=== PATIENT | female | born 1980 | race Caucasian/White ===

== ENCOUNTER 2016-10-28 03:46 | Inpatient (IN) | payer OTHER ==
[2016-10-28 06:29] LABS: Hematocrit 34 % (35-47); Hemoglobin 11.6 g/dl (12.0-16.0); Mean Corpuscular HGB Conc 34 g/dl (31-36); Mean Corpuscular Hemoglobin 31 pg (27-31); Mean Corpuscular Volume 90 fL (80-97); Mean Platelet Volume 9 um3 (7.4-10.4); Red Blood Count 3.79 10^6/ul (4.0-5.4); Red Cell Distribution Width 13 % (10.5-15); White Blood Count 9.6 10^3/ul (3.5-10.8)
[2016-10-28 06:43] LABS: Comments Flag Yes
[2016-10-28] MEDS ORDERED: Oxytocin in LR* 20 UNITS/1,000 ML BAG IVPB ONE (08:48)
[2016-10-28] MEDS ORDERED: Oxytocin in LR* 20 UNITS/1,000 ML BAG IVPB SCH (09:00)
[2016-10-28] MEDS ORDERED: OBEPIDURAL* 250 ML ONE (14:40)
[2016-10-28] MEDS ORDERED: Famotidine TAB* 20 MG PO PRN (15:21)
[2016-10-28] MEDS ORDERED: Sodium Citrate/Citric Acid* 15 ML UDC PO PRN (15:21)
[2016-10-28] MEDS ORDERED: Phenylephrine IV* 40 MCG/ML 10 ML SYRINGE IV PUSH PRN (15:21)
[2016-10-28] MEDS ORDERED: OBEPIDURAL* 250 ML EPIDURAL SCH (16:00)
[2016-10-29] MEDS ORDERED: ceFOXitin 2 GM IVPREMIX* 2 GM/50 ML BAG ONE
[2016-10-29] MEDS ORDERED: Ketorolac INJ* 30 MG/ML 1 ML VIAL ONE (00:10)
[2016-10-29] MEDS ORDERED: Lidocaine 2% PF* 10 ML AMP ONE (00:10)
[2016-10-29] MEDS ORDERED: OXYTOCIN* 10 UNITS/ML 1 ML VIAL ONE (00:10)
[2016-10-29] MEDS ORDERED: Ondansetron INJ* 2 MG/ML VIAL ONE (00:10)
[2016-10-29] MEDS ORDERED: ceFOXitin 2 GM IVPREMIX* 2 GM/50 ML BAG IVPB ONE (00:11)
[2016-10-29] MEDS ORDERED: oxyCODONE/Acetamin 5/325 MG* TAB PO PRN ×4 (00:12→02:01)
[2016-10-29] MEDS ORDERED: Dibucaine 1% 28.35 GM TUBE PR PRN (00:12)
[2016-10-29] MEDS ORDERED: Acetaminophen TAB* 325 MG PO PRN (00:12)
[2016-10-29] MEDS ORDERED: Glycerin ADULT SUPP PR PRN (00:12)
[2016-10-29] MEDS ORDERED: Witch Hazel PAD* JAR TOPICAL PRN (00:12)
[2016-10-29] MEDS ORDERED: Morphine PF AMP (0.5MG/ML)* 5 MG/10 ML AMP ONE (00:36)
[2016-10-29] MEDS ORDERED: Phenylephrine IV* 40 MCG/ML 10 ML SYRINGE ONE (00:36)
[2016-10-29] MEDS ORDERED: Oxytocin in LR* 20 UNITS/1,000 ML BAG IVPB SCH (01:00)
[2016-10-29] MEDS ORDERED: fentaNYL* 50 MCG/ML 2 ML VIAL (100 MCG VIAL) ONE (01:09)
[2016-10-29] MEDS ORDERED: Propofol* 10 MG/ML 20 ML BTL IV PUSH ONE (01:38)
[2016-10-29] MEDS ORDERED: HYDROmorphone* 1 MG/ML 1 ML SYR IV PRN (01:53)
[2016-10-29] MEDS ORDERED: DiMENhydriNATE IV* 50 MG/ML VIAL IV PUSH PRN (01:53)
[2016-10-29] MEDS ORDERED: Acetaminophen IV 1GM/100ML * 100 ML IVPB ONE (01:53)
[2016-10-29] MEDS ORDERED: Naloxone* 0.4 MG/ML 1 ML VIAL IV PRN (01:55)
[2016-10-29] MEDS ORDERED: Ondansetron INJ* 2 MG/ML VIAL IV PRN (01:55)
[2016-10-29] MEDS ORDERED: Nalbuphine* 20 MG/ML 1 ML VIAL IV PRN (01:55)
[2016-10-29] MEDS ORDERED: oxyCODONE TAB* 5 MG TAB PO PRN (02:02)
[2016-10-29 03:15] LABS: Hematocrit 29 % (35-47); Hemoglobin 9.8 g/dl (12.0-16.0); Mean Corpuscular HGB Conc 34 g/dl (31-36); Mean Corpuscular Hemoglobin 30 pg (27-31); Mean Corpuscular Volume 89 fL (80-97); Mean Platelet Volume 8 um3 (7.4-10.4); Red Blood Count 3.23 10^6/ul (4.0-5.4); Red Cell Distribution Width 13 % (10.5-15); White Blood Count 17.8 10^3/ul (3.5-10.8)
[2016-10-29] MEDS ORDERED: Misoprostol TAB* 200 MCG ONE (03:41)
[2016-10-29 03:54] LABS: EGFR African American 150.4 (>60)
[2016-10-29] MEDS ORDERED: Gentamicin ADULT per pharmacy 1 NOTE MISC FOLLOW UP PRN (04:12)
[2016-10-29] MEDS ORDERED: Gentamicin ADULT (*) 40 MG/ML VIAL IVPB SCH (06:00)
[2016-10-29] MEDS: Clindamycin 900 MG IVPREMIX(* 900 MG/50 ML SDV IV SCH ×3 (06:02→22:20)
[2016-10-29] MEDS: Simethicone CHEW TAB* 80 MG PO SCH ×4 (08:33→20:37)
[2016-10-29] MEDS: Ibuprofen TAB* 600 MG PO PRN ×3 (08:33→20:37)
[2016-10-29] MEDS: Docusate CAP* 100 MG PO SCH ×3 (08:33→20:37)
--- NOTE | 2016-10-29 14:34 | OP ---
DATE OF OPERATION: 10/29/16 - ROOM #MCHOB-104 DATE OF : 76 SURGEON: Maryjo Westbrook MD DELI CUTTER SLICER: Mick Peralta CNM. ANESTHESIOLOGIST: Dat Kidd MD. ANESTHESIA: Epidural. PRE-OP DIAGNOSIS: Intrauterine at 40-3/7 weeks, arrest of descent. POST-OP DIAGNOSIS: Intrauterine at 40-3/7 weeks, arrest of descent, delivered. OPERATIVE PROCEDURE: Primary low transverse section. FLUIDS: 1600 cc of crystalloid. ESTIMATED BLOOD LOSS: 600 cc. URINE OUTPUT: 400 cc of concentrated, pink tinged, yellow urine. FINDINGS: Revealed a vertex male infant, direct OP. Apgars 9 at 1 minute, 9 at 5 minutes. Weight was 8 pounds 15 ounces. No meconium. No nuchal cord. Normal- appearing placenta, three-vessel cord, manually extracted. Placental culture obtained. The uterine cavity explored, noted to be free of any membranes or placental tissue. Normal-appearing tubes and ovaries bilaterally. COMPLICATIONS: None apparent. DISPOSITION: Stable to recovery room. DESCRIPTION OF PROCEDURE: The patient was placed in dorsal lithotomy position. After undergoing bolus of the epidural anesthesia, the abdomen was prepped and draped in a sterile standard fashion. The patient was identified with the universal protocol. Anesthesia was tested to appropriate level. Incision was made 2 fingerbreadths above the pubic symphysis. This was carried down to the fascia. Fascia was scored in the midline and extended laterally and superiorly using curved Dahl scissors, both superiorly and inferiorly with blunt and sharp dissection. Linea alba was then traversed bluntly and the peritoneal cavity was entered bluntly. Copious peritoneal fluid was noted. The bladder blade was inserted. The low uterine segment was identified, tented up with an Allis and incised with the scalpel. This was carried down through to the membranes. The uterine incision was extended laterally and superiorly using bandage scissors, no meconium was noted. was found to be direct OP with nose and eyes at incisional site. Infant was delivered. Anterior and posterior shoulder delivered. Cord was doubly clamped and cut and infant was handed off to waiting manipulator operator. Appropriate cord blood was obtained. Placenta was then manually extracted noted to be intact, three-vessel cord. Uterine cavity was explored, noted to be free of membranes. Uterus was exteriorized, wrapped in warm moist laparotomy sponge. The incision was clamped with broad Allis in the incision, hysterotomy site was reapproximated in 2 layers, first layer running lock, second layer running imbricated. Tubes and ovaries are noted to have normal appearance. Uterus was returned intraabdominally. Copious lavage was performed of colic gutters, removal of blood and clots. The hysterotomy site was visualized, noted to be hemostatic. The peritoneum was then clamped and the peritoneum was then reapproximated using 3- 0 Vicryl in a running fashion. The subfascial area was visualized. Hemostasis assured and the fascia itself was then reapproximated using 0 Vicryl x2 in a running fashion. Lavage was performed of the subcutaneous tissue. Hemostasis assured with Bovie coagulation and the skin was then reapproximated using a 4-0 Monocryl in a subcuticular fashion. Mastisol and Steri's were applied. Please note prior to subcuticular closure, a Camper's fascia closure was carried out with 0 Vicryl in an interrupted fashion x3. All sponge, instruments, and blade counts were correct throughout the case. The patient tolerated the procedure well and went to recovery room in stable condition. [id number]/[facility] #: [id number] KLAUS
[2016-10-29] MEDS: oxyCODONE/Acetamin 5/325 MG* TAB PO PRN ×2 (17:26→23:20)
[2016-10-29] MEDS ORDERED: Gentamicin Trough Level 1 NOTE MISC FOLLOW UP ONE (22:00)
[2016-10-29] MEDS ORDERED: Gentamicin PEAK LEVEL* 1 NOTE MISC FOLLOW UP ONE (23:00)
[2016-10-30] MEDS: Ibuprofen TAB* 600 MG PO PRN (04:12)
[2016-10-30] MEDS: Clindamycin 900 MG IVPREMIX(* 900 MG/50 ML SDV IV SCH (05:16)
[2016-10-30] MEDS: oxyCODONE/Acetamin 5/325 MG* TAB PO PRN ×3 (07:27→21:33)
[2016-10-30 07:35] LABS: Hematocrit 25 % (35-47); Hemoglobin 8.4 g/dl (12.0-16.0); Mean Corpuscular HGB Conc 34 g/dl (31-36); Mean Corpuscular Hemoglobin 30 pg (27-31); Mean Corpuscular Volume 90 fL (80-97); Mean Platelet Volume 8 um3 (7.4-10.4); Red Blood Count 2.77 10^6/ul (4.0-5.4); Red Cell Distribution Width 14 % (10.5-15); White Blood Count 12.3 10^3/ul (3.5-10.8)
[2016-10-30] MEDS: Simethicone CHEW TAB* 80 MG PO SCH ×4 (10:07→21:32)
[2016-10-30] MEDS: Docusate CAP* 100 MG PO SCH ×3 (10:07→21:32)
[2016-10-30] MEDS: Ferrous Gluconate TAB* 324 MG TAB PO SCH ×2 (10:07→21:33)
[2016-10-30] MEDS: Ibuprofen TAB* 600 MG PO SCH ×2 (10:50→18:07)
[2016-10-31] MEDS: Ibuprofen TAB* 600 MG PO SCH ×3 (00:29→13:53)
[2016-10-31] MEDS: Simethicone CHEW TAB* 80 MG PO SCH ×2 (07:47→13:51)
[2016-10-31] MEDS: Ferrous Gluconate TAB* 324 MG TAB PO SCH (07:47)
[2016-10-31] MEDS: Docusate CAP* 100 MG PO SCH ×2 (07:47→13:51)
[2016-10-31 08:01] VITALS: BP 114/65
[2016-10-31] MEDS: oxyCODONE/Acetamin 5/325 MG* TAB PO PRN (13:52)
[2016-11-05] MEDS ORDERED: Gentamicin Trough Level 1 NOTE MISC FOLLOW UP ONE (22:00)
[2016-11-05] MEDS ORDERED: Gentamicin PEAK LEVEL* 1 NOTE MISC FOLLOW UP ONE (23:00)
== END 2016-10-31 14:20 | disposition home or self-care (01) | DRG 766 ==
LOC: MCHOBOUT 03:46 → MCHOB 04:25
PROVIDERS: ADMIT Obstetrics & Gynecology; ATTEND Obstetrics & Gynecology
PROC: 10D00Z1 Extraction of Products of Conception, Low, Open Approach (ICD-10-PCS; principal; 2016-10-29 00:24)
DX: O62.0 Primary inadequate contractions (principal); D64.9 Anemia, unspecified; O32.2XX0 Maternal care for transverse and oblique lie, not applicable or unspecified; O48.0 Post-term pregnancy; O90.81 Anemia of the puerperium; Z3A.40 40 weeks gestation of pregnancy; Z37.0 Single live birth
CPT/HCPCS: 36415; 80170; 82565; 85025; 86850; 86900; 86901; 87040; 87070; 88307; A9270-GY; J0290; J0694; J1580; J1885; J2001; J2405; J2590; J2704; J3010

== ENCOUNTER 2019-02-13 10:23 | Emergency (ER) | payer OTHER ==
--- OUTSIDE RECORDS SUMMARY | 2019-02-13 11:29 | XMS REPORT | Continuity of Care Document ---
:1980 External Reference #:[id number] Author Name Shanice Carpenter M.D. Address [address] [place] [address] Care Team Providers Name Role Phone Brandy James M.D. - Family Medicine Care Team Information [employer] Unavailable Problems Active Problems Provider Date Allergic rhinitis Brandy James M.D. Onset: 04/16/2015 Social History Type Date Description Comments Sex Unknown ETOH Use Consumes 1 glass of wine per day Tobacco Use Start: Unknown Patient has never smoked Smoking Status Reviewed: 04/11/18 Patient has never smoked Exercise Type/Frequency Exercises sporadically Allergies, Adverse Reactions, Alerts Description No Known Drug Allergies Medications Description No Active Medications Immunizations CPT Code Status Date Vaccine Lot # [id number] Given 04/11/2018 Influenza Virus Vaccine, Recombinant Dna, [id number] Hemagglutnin Protein On Vital Signs Date Vital Result Comment 12/29/2018 3:54pm BP Systolic 120 mmHg BP Diastolic 56 mmHg Heart Rate 84 /min Body Temperature 98.7 F Height 64 inches 5'4" Weight 167.00 lb BMI (Body Mass Index) 28.7 kg/m2 04/11/2018 9:40am BP Systolic 100 mmHg BP Diastolic 72 mmHg Heart Rate 60 /min Body Temperature 98.2 F Respiratory Rate 12 /min Height 64 inches 5'4" Weight 146.00 lb BMI (Body Mass Index) 25.1 kg/m2 Results Description No Information Available Procedures Description No Information Available Medical Devices Description No Information Available Encounters Description No Information Available Assessments Date Code Description Provider 12/29/2018 J02.9 Acute pharyngitis, unspecified Shanice Carpenter M.D. 12/29/2018 B34.9 Viral infection, unspecified Shanice Carpenter M.D. Plan of Treatment 12/29/2018 - Shanice Carpenter M.D.J02.9 Acute pharyngitis, unspecifiedNew Labs :Quickstrep, Ordered: 12/29/18Comments:quick strep negative.B34.9 Viral infection, unspecifiedComments:ok to take tylenol for pain and fever. Hot toddy - hot black tea, lemon, honey, octavio, garlic. Warm towel around the throat.plenty of sleep. dextromethorphan cough syrup - benylin, delsym, plain robitusssin. hot salt water gargle if your throat hurts. you might need to come back for re-evaluation if you get worse. Addendum: left message on phone after she left about whether or not dextromethrophan is safe to take in . I looked up several references and got conflicting reports about its safety. Asked her to call her OB to find out if it is ok for her to take it while she is . I told her cough drops are ok I also sent her a portal m edy.AllComments:Medication Management Patient Understands medications she's taking? Yes No Are there Barriers to Adherence? Yes No Has the patient been asked about herbal supplements and therapies, and OTC meds? Yes No Functional Status Description No Information Available Mental Status Description No Information Available Referrals Description No Information Available
--- NOTE | 2019-02-13 11:43 | UC ---
Throat Pain/Nasal Armando HPI - HPI Summary HPI Summary: 38 yo female presents with sinus symptoms. She tells me that for the last 1.5 weeks she has had a mild sore throat and sinus congestion. Over the last 3 days has had worsening pain in her right maxillary sinus. She has been doing kaylyn pot and nasal rinses and OTC cold medication with no relief. She is currently 35 weeks with no issues and is scheduled for a on 03/14/18. She denies fever, chills, rash, abdominal/pelvic pain, n/v, dysuria. - History of Current Complaint Stated Complaint: SINUS ISSUE Time Seen by Provider: 02/13/19 11:43 Hx Obtained From: Patient Onset/Duration: Gradual Onset Severity: Moderate Pain Intensity: 5 Pain Scale Used: 0-10 Numeric - Allergies/Home Medications Allergies/Adverse Reactions: Allergies Allergy/AdvReac Type Severity Reaction Status Date / Time No Known Allergies Allergy Verified 02/13/19 11:51 Home Medications: Home Medications Calcium Carbonate [Calcium] 1 dose PO DAILY 02/13/19 [History Confirmed 02/13/19 ] Magnesium Oxide [Magnesium] 1 dose PO DAILY 02/13/19 [History Confirmed 02/13/19 ] Vit37/Iron/Folic Acid [Prenata Chewable Tablet] 1 tab PO DAILY [History Confirmed 02/13/19] Pseudoephedrine HCl [Sudafed] 1 tab PO ONCE PRN 02/13/19 [History Confirmed 12/23] PMH/Surg Hx/FS Hx/Imm Hx - Additional Past Medical History Additional PMH: None - Surgical History Surgical History: Yes Surgery Procedure, Year, and Place: WISDOM TEETH LOWER-LOCAL - Family History Known Family History: Positive: None - Social History Occupation: Employed Full-time Lives: With Family Alcohol Use: None Substance Use Type: None Smoking Status (MU): Never Smoked Tobacco - Immunization History Most Recent Influenza Vaccination: not currently flu season Most Recent Pneumonia Vaccination: not indicated Review of Systems All Other Systems Reviewed And Are Negative: No Constitutional: Positive: Negative Skin: Positive: Negative Eyes: Positive: Negative ENT: Positive: Nasal Discharge, Sinus Congestion, Sinus Pain/Tenderness Respiratory: Positive: Negative Cardiovascular: Positive: Negative Gastrointestinal: Positive: Negative Neurovascular: Positive: Negative Neurological: Positive: Negative Psychological: Positive: Negative Physical Exam - Summary Physical Exam Summary: GENERAL: NAD. WDWN. No pain distress. SKIN: No rashes, sores, lesions, or open wounds. HEENT: Head: AT/NC Eyes: EOM intact. Conjunctiva clear without inflammation or discharge. Ears: Hearing grossly normal. TMs intact, no bulging, erythema, or edema. Nose: Nasal mucosa mildly swollen and erythematous with yellow discharge. TTP maxillary right side. Positive post nasal drip Throat: Posterior oropharynx without exudates, erythema, or tonsillar enlargement. Uvula midline. NECK: Supple. Nontender. No lymphadenopathy. CHEST: CTAB. No r/r/w. No accessory muscle use. Breathing comfortably and in no distress. CV: RRR. Pulses intact. NEURO: Alert. PSYCH: Age appropriate behavior. Triage Information Reviewed: Yes Vital Signs: Vital Signs: Temp Pulse Resp BP Pulse Ox 98.9 F 84 18 115/75 97 02/13/19 11:41 02/13/19 11:41 02/13/19 11:41 02/13/19 11:41 02/13/19 11:41 Vital Signs Reviewed: Yes Throat Pain/Nasal Course/Dx - Course Course Of Treatment: Sinusitis - Differential Dx/Diagnosis Provider Diagnosis: Sinusitis Discharge ED - Sign-Out/Discharge Documenting (check all that apply): Patient Departure All imaging exams completed and their final reports reviewed: No Studies - Discharge Plan Condition: Stable Disposition: HOME Prescriptions: Amoxicillin PO (*) [Amoxicillin 875 MG (*)] 875 mg PO BID #14 tab Patient Education Materials: Sinusitis (ED) Referrals: Brandy James MD [Primary Care Provider] - Additional Instructions: If you develop a fever, shortness of breath, chest pain, new or worsening symptoms - please call your PCP or go to the ED immediately. - Billing Disposition and Condition Condition: STABLE Disposition: Home
[2019-02-13 11:52] VITALS: BP 115/75
== END 2019-02-13 12:13 | disposition home or self-care (01) ==
LOC: UCEAST 10:23
DX: O99.513 Diseases of the respiratory system complicating pregnancy, third trimester (principal); J32.9 Chronic sinusitis, unspecified; Z3A.35 35 weeks gestation of pregnancy
CPT/HCPCS: 99212; G0463

== ENCOUNTER 2019-03-14 06:09 | Inpatient (IN) | payer OTHER ==
[~2019-03-14 06:09] MED LIST: Buffered Lidocaine 1% SYRIN* 1 ML/SYRINGE INTRADERM ONE; Famotidine IV* 10 MG/ML 2 ML (20 mg) IV ONE; Lactated Ringers 1000 ML Bag* 1,000 ML IV SCH; Sodium Citrate/Citric Acid* 15 ML UDC PO ONE
--- OUTSIDE RECORDS SUMMARY | 2019-03-14 06:12 | XMS REPORT | Continuity of Care Document ---
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 Problems Description No Information Available Social History Type Date Description Comments Sex Unknown Tobacco Use Start: Unknown Never Smoked Cigarettes ETOH Use Alcohol Use Prior To 3-4 beers/week, stopped with Tobacco Use Start: Unknown Patient has never smoked Recreational Drug Use Does Not Use Drugs Smoking Status Reviewed: 03/06/19 Patient has never smoked Seat Belt/Car Seat Always uses seat belt Allergies, Adverse Reactions, Alerts Active Allergies Reaction Severity Comments Date Penicillin 12/06/2016 Inactive Allergies NKDA 06/10/2015 Medications Active Medications SIG Qnty Indications Ordering Provider Date Diflucan take 1 pill as 1tabs N76.0 Orquidea Stroud, 02/19/2019 150mg Tablets directed PNV-Dha 1 by mouth every Unknown day 27-0.6-0.4-300mg Capsules Medications Administered in Office Medication SIG Qnty Indications Ordering Provider Date PT SCRN Tbco Id as Non User Maryjo Westbrook MD 03/06/2019 Injection PT SCRN Tbco Id as Non User Orquidea Stroud MD 02/19/2019 Injection PT SCRN Tbco Id as Non User Miracle Gomez MD 07/26/2017 Injection PT SCRN Tbco Id as Non User Maryjo Westbrook MD 03/18/2017 Injection Immunizations CPT Code Status Date Vaccine Lot # [id number] Given 01/11/2019 Tetnus, Diptheria Toxoids And Acellular Pertussis, [id number] PT > 7Yrs Old [id number] Given 12/26/2018 Influenza Vaccine Quadrivalent Preser/Antibiotic [id number] Free Im Use [id number] Given 08/03/2016 Tetnus, Diptheria Toxoids And Acellular Pertussis, [id number] PT > 7Yrs Old Vital Signs Date Vital Result Comment 08/22/2018 9:55am BP Systolic 106 mmHg BP Diastolic 64 mmHg Height 63 inches 5'3" Weight 150.00 lb BMI (Body Mass Index) 26.6 kg/m2 Last Menstrual Period 9941386 3 Parity 1 04/17/2018 9:30am BP Systolic 110 mmHg BP Diastolic 66 mmHg Height 63 inches 5'3" Weight 144.00 lb BMI (Body Mass Index) 25.5 kg/m2 2 Parity 1 Results Test Acquired Facility Test Result H/L Range Note Date Laboratory test 02/19/2019 [facility] Gardnerella/Yea SEE RESULT 1 [place] [address] st: Vaginal Dna BELOW [phone] Laboratory test 02/19/2019 [facility] Genital For GRP SEE RESULT [address] [place] [address] B Strep Only BELOW [phone] Glucose 01/09/2019 [facility] GTT 3HR (SEE NOTE) 3 Tolerance 3HR [place] [address] Gestational Gestational [phone] Laboratory test 12/26/2018 [facility] Glucose 1 HR 145 mg/dL Normal 70-160 [address] [place] [address] Post Prandial [phone] CBC With No 12/26/2018 [facility] White Blood 7.3 Normal 3.5- 10.8 [place] [address] Count 10^3/uL [phone] Red Blood Count 3.44 10^6/uL Low 3.70-4.87 Hemoglobin 11.1 g/dL Low 12.0-16.0 Hematocrit 33 % Low 35-47 Mean Corpuscular Volume 97 fL Normal 80-97 Mean Corpuscular Hemoglobin 32 pg High 27-31 Mean Corpuscular HGB Conc 33 g/dL Normal 31-36 Red Cell Distribution Width 14 % Normal 10-15 Platelet Count 272 10^3/uL Normal 150-450 Mean Platelet Volume 7.8 fL Normal 7.4-10.4 Maternal Serum Afp 10/11/2018 [facility] Interpretation SEE NOTE 5 Risk For NTD (Osb) LESS THAN 1:5000 6 Afp,Serum 34.0 NG/ML Adjusted Mom 0.91 7 Comment SEE NOTE 8 Date Of 1980 SUSANNE 03/21/2019 SUSANNE Determined By LMP Gestational Age 17.0 WEEKS Weight 150 LBS Race =W Insulin Dependent Diabetic NO Cigarette Smoker NO Repeat Sample NO Number Of Fetuses 1 History Of NTD NO Date Of Draw 10/11/2018 [facility] SEE NOTE 9 Urine Drug 09/20/2018 [facility] Urine Amphetamine Negative ng/ mL 10 Comp 20 [place] [address] [phone] Urine Barbiturates Negative ng/mL 11 Urine Benzodiazepines Negative ng/mL 12 Urine Cocaine Negative ng/mL 13 Urine Phencyclidine Negative ng/mL Cutoff: 25 Urine Tetrahydrocannabinol Negative ng/mL Cutoff: 50 14 Creatinine, Urine 28.5 mg/dL Specific [place] 1.006 pH 7.6 Oxidants Negative 15 Adulterants Comment Normal Codeine, Ur Not Detected ng/mL Cutoff: 25 16 Pydlkzz-0-tfix-glucuronide, Ur Not Detected ng/mL 17 Morphine, Ur Not Detected ng/mL Cutoff: 25 18 Ohvsywza-5-kukg-glucuronide, U Not Detected ng/mL 19 6-monoacetylmorphine, Ur Not Detected ng/mL Cutoff: 25 20 Hydrocodone, Ur Not Detected ng/mL Cutoff: 25 21 Norhydrocodone, Ur Not Detected ng/mL Cutoff: 25 22 Dihydrocodeine, Ur Not Detected ng/mL Cutoff: 25 23 Hydromorphone, Ur Not Detected ng/mL Cutoff: 25 24 Zjxgpapqimmjc8vaxtgxqgytnwwqz Not Detected ng/mL 25 Oxycodone, Ur Not Detected ng/mL Cutoff: 25 26 Noroxycodone, Ur Not Detected ng/mL Cutoff: 25 27 Oxymorphone, Ur Not Detected ng/mL Cutoff: 25 28 Xruonpgieqe-9-mgha-glucuronide Not Detected ng/mL 29 Noroxymorphone, Ur Not Detected ng/mL Cutoff: 25 30 Fentanyl, Ur Not Detected ng/mL Cutoff: 2 31 Norfentanyl, Ur Not Detected ng/mL Cutoff: 2 32 Meperidine, Ur Not Detected ng/mL Cutoff: 25 33 Normeperidine, Ur Not Detected ng/mL Cutoff: 25 34 Naloxone, Ur Not Detected ng/mL Cutoff: 25 35 Aflcjyit-2-egfy-glucuronide, U Not Detected ng/mL 36 Methadone, Ur Not Detected ng/mL Cutoff: 25 37 Eddp, Ur Not Detected ng/mL Cutoff: 25 38 Propoxyphene, Ur Not Detected ng/mL Cutoff: 25 39 Norpropoxyphene, Ur Not Detected ng/mL Cutoff: 25 40 Tramadol, Ur Not Detected ng/mL Cutoff: 25 41 O-desmethyltramadol, Ur Not Detected ng/mL Cutoff: 25 42 Tapentadol, Ur Not Detected ng/mL Cutoff: 25 43 N-desmethyltapentadol, Ur Not Detected ng/mL Cutoff: 50 44 Vvmzsqfxjy-wwkt-vvsuecabxtb, U Not Detected ng/mL 45 Buprenorphine, Ur Not Detected ng/mL Cutoff: 5 46 Norbuprenorphine, Ur Not Detected ng/mL Cutoff: 5 47 Norbuprenorphine glucuronide Not Detected ng/mL Cutoff: 20 48 Opioid Interpretation See Comment 49 1 SEE RESULT BELOW Name: FREDY DUQUE : [address]: Orquidea Stroud MD Acct: [id number] Unit: [id number] AGE: 38 Location: [facility] Re02/19/19 SEX: F Status: REG REF SPEC: [id number] FELIPE: 02/19/19-1339 [facility] DR: Orquidea Stroud MD REQ: [id number] RECD: 02/19/19 STATUS: COMP _ SOURCE: VAGINAL SPDESC: ORDERED: Mayra,Yeast DNA, Trich DNA COMMENTS: [id number] Would you like to order Trichomonas Vaginalis testing? Yes Procedure Result Reported Site Gardnerella/Yeast: Vaginal DNA Final 02/20/19- 1218 ML Organism 1 Negative Gardnerella Organism 2 POSITIVE ALINE The presence of G. vaginalis, although suggestive, is not diagnostic for bacterial vaginosis. Results should be interpreted in conjuction with other clinical and laboratory data available. Women with vaginal discharge should be evaluated for risk factors of cervicitis and pelvic inflammatory disease, toxic shock syndrome (S.aureus), and if present, evaluated for organisms not included in this assay such as N. gonorrhoeae, C. trachomatis, Mobiluncus, Mycoplasma and/or Prevotella. Mixed infections may occur. The performance of this test on patient specimens collected during or immediately after antimicrobial therapy is unknown. The presence or absence of Aline species, or G. vaginalis cannot be used as a test for therapeutic success or failure. Trichomonas: Vaginal DNA Probe Final 02/20/19- 1218 ML Organism 1 Negative Trichomonas CONTINUED ON NEXT PAGE DEPARTMENT OF PATHOLOGY, [address] [place] [address] Cesar Leyva M.D. Director [facility] # [id number] Patient: FREDY DUQUE [id number] (Continued) Specimen: [id number] Collected: 02/19/19133 Received: 02/19/19160 (Continued) Procedure Result Reported Site Trichomonas: Vaginal DNA Probe Final (continued) 02/20/19- 1218 The presence or absence of T. vaginalis cannot be used as a test for therapeutic success or failure. * - Main Lab . END OF REPORT DEPARTMENT OF PATHOLOGY, [address] [place] [address] Cesar Leyva M.D. Director [facility] # [id number] 2 SEE RESULT BELOW Name: FREDY DUQUE : [address]: Orquidea Stroud MD Acct: [id number] Unit: [id number] AGE: 38 Location: [facility] Re02/19/19 SEX: F Status: REG REF SPEC: [id number] FELIPE: 02/19/19-133 [facility] DR: Orquidea Stroud MD REQ: [id number] RECD: 02/19/19 STATUS: COMP _ SOURCE: ZOE/SHEY/RE SPDESC: ORDERED: Grp B Strp Scrn COMMENTS: [id number] QUERIES: Is Patient Penicillin Allergic? Y Is patient penicillin allergic and/or sensitivities needed? Y Provider Requisition # C77#[id number]_ Procedure Result Reported Site Group B Strep Culture Screen Final 02/21/19- 1043 ML Group B Strep Screen Negative * ML - Main Lab . END OF REPORT DEPARTMENT OF PATHOLOGY, [address] [place] [address] Cesar Leyva M.D. Director [facility] # [id number] 3 GLU Fast 93 Col: 01/09/19 1313 GLU 1HR 141 Col: 01/09/19 1413 GLU 2HR 102 Col: 01/09/19 1513 GLU 3HR 90 Col: 01/09/19 1613 GLU Interp Col: 01/09/19 1313 GTT normal ranges for obstetrics per the [employer] (ACOG).Based on 100 gm glucose load: Fasting <95 mg/dl 1hr <180 mg/dl 2hr <155 mg/dl 3hr <140 mg/dl 4 [id number] 5 SCREEN NEGATIVE FOR OPEN NTD. 6 LESS THAN 1:5000 7 ADJUSTED AFP MOM INTERPRETIVE CUTOFFS: <2.50 ADJUSTED MOM <1.90 ADJUSTED MOM FOR INSULIN-DEPENDENT DIABETES <4.00 ADJUSTED MOM FOR TWINS <3.50 ADJUSTED MOM FOR TWINS INSULIN-DEPENDENT DIABETES <4.50 ADJUSTED MOM FOR TRIPLETS <4.00 ADJUSTED MOM FOR TRIPLETS INSULIN-DEPENDENT DIABETES 8 THE AFP TEST RESULT INDICATES THAT THIS PATIENT IS SCREEN NEGATIVE FOR OPEN NTD. IT SHOULD BE NOTED THAT NORMAL TEST RESULTS CAN NEVER GUARANTEE THE OF A NORMAL BABY AND THAT 2-3% OF [place] HAVE SOME TYPE OF PHYSICAL OR MENTAL DEFECT, MANY OF WHICH ARE UNDETECTABLE THROUGH ANY KNOWN DIAGNOSTIC TECHNIQUE. THE SINGLE AFP MARKER IS NOT RECOMMENDED FOR DOWN SYNDROME AND OTHER CHROMOSOMAL ABNORMALITIES SCREENING. MUCH GREATER SENSITIVITY IS ACHIEVED WITH MULTIPLE MARKERS, SUCH AFP, HCG, UNCONJUGATED ESTRIOL, AND/OR DIMERIC INHIBIN A. WHILE WOMEN 35 YEARS OR OLDER AT THE TIME OF DELIVERY HAVE THE HIGHEST RISK OF HAVING A CHILD WITH DOWN SYNDROME, CURRENT [employer] GUIDELINES (JOB DEVELOPMENT SPECIALIST 2007 V109 [id number] RECOMMEND THAT "MATERNAL AGE ALONE NO LONGER BE USED A CUT-OFF TO DETERMINE WHO IS OFFERED SCREENING VERSUS WHO IS OFFERED INVASIVE TESTING." GENETIC COUNCELING MAY BE CONSIDERED. THIS IS A SCREENING TEST, NOT A DIAGNOSTIC TEST. THIS RISK ASSESSMENT REPORT IS BASED IN PART ON DEMOGRAPHIC DATA PROVIDED BY THE ORDERING PHYSICIAN. PLEASE NOTIFY THE LAB PROMPTLY IF ANY DATA IS INCORRECT. FOR ASSISTANCE WITH RECALCULATIONS, PLEASE CALL YOUR LOCAL [facility] AT . FOR ASSISTANCE WITH INTERPRETATION OF THESE RESULTS, PLEASE CALL [phone]. 9 --- Reviewed by: Cristofer Alvarez MD 10 REFERENCE VALUE Cutoff: 500 11 REFERENCE VALUE Cutoff: 200 12 REFERENCE VALUE Cutoff: 100 13 REFERENCE VALUE Cutoff: 150 14 ADDITIONAL INFORMATION This report is intended for use in clinical monitoring or management of patients. It is not intended for use in employment-related testing. Test Performed by: [facility] [address] [place] [address] 15 REFERENCE VALUE Cutoff: 200 mg/L 16 Tylenol 3 17 Metabolite of codeine REFERENCE VALUE Cutoff: 100 18 Khadijah Dominguez, MS Contin; Also a minor metabolite (10%) of codeine and can be seen in low concentrations (<2,000 ng/mL) with poppy seed ingestion. 19 Metabolite of morphine REFERENCE VALUE Cutoff: 100 20 Metabolite of heroin 21 Lortab, Grygla, Vicodin; Also a very minor metabolite of codeine and impurity (<1%) of oxycodone. 22 Metabolite of hydrocodone 23 Metabolite of hydrocodone 24 Dilaudid, Exalgo; Also a metabolite of hydrocodone and a minor (<5%) metabolite of morphine. 25 Metabolite of hydromorphone REFERENCE VALUE Cutoff: 100 26 Endocet, Percocet, Oxycontin 27 Metabolite of oxycodone 28 Numorphan, Opana; Also a metabolite of oxycodone. 29 Metabolite of oxymorphone REFERENCE VALUE Cutoff: 100 30 Metabolite of oxymorphone 31 Actiq, Duragesic, Fentora 32 Metabolite of fentanyl 33 Demerol 34 Metabolite of meperidine 35 Narcan 36 Metabolite of naloxone REFERENCE VALUE Cutoff: 100 37 Dolophine 38 Metabolite of methadone 39 Darvon, Darvocet 40 Metabolite of propoxyphene 41 Tradol, Ultram, Ultracet 42 Metabolite of tramadol 43 Nucynta 44 Metabolite of tapentadol 45 Metabolite of tapentadol REFERENCE VALUE Cutoff: 100 46 Buprenex, Suboxone 47 Metabolite of buprenorphine 48 Metabolite of buprenorphine 49 No opioids were detected. The absence of expected drug(s) and/or drug metabolite(s) may indicate non-compliance, altered pharmacokinetics, inappropriate timing of specimen collection relative to drug administration, diluted/adulterated urine, or limitations of testing. ADDITIONAL INFORMATION This test was developed and its performance characteristics determined by [facility] in a manner consistent with CLIA requirements. This test has not been cleared or approved by the U.S. Food and Drug Administration. Procedures Date Code Description Status 11/07/2018 42437 Echography Uterus Complete Completed Medical Devices Description No Information Available Encounters Type Date Location Provider Dx Diagnosis Office Visit 03/06/2019 [facility] Maryjo Westbrook, Z34.83 Encounter for 10:00a MD vargas of normal , third trimester Office Visit 02/19/2019 [facility] Orquidea Stroud, O09.523 Supervision of 1:00p elderly multigravida, third trimester N76.0 Acute vaginitis Assessments Date Code Description Provider 03/06/2019 Z34.83 Encounter for supervision of other normal Maryjo Westbrook MD , third trimester 02/27/2019 Z34.83 Encounter for supervision of other normal Godwin Reyes M.D. , third trimester 02/19/2019 O09.523 Supervision of elderly multigravida, third Orquidea Stroud MD trimester 02/19/2019 N76.0 Acute vaginitis Orquidea Stroud MD 02/08/2019 Z36.9 Encounter for screening, Maryjo Westbrook MD unspecified 01/25/2019 O34.211 Maternal care for low transverse scar from Kenny Medina JR, DO previous delivery 01/11/2019 Z23 Encounter for immunization Miracle Gomez MD 01/11/2019 O34.211 Maternal care for low transverse scar from Miracle Gomez MD previous delivery 01/11/2019 O09.523 Supervision of elderly multigravida, third Miracle Gomez MD trimester 01/09/2019 Z36.9 Encounter for screening, Miracle Gomez MD unspecified 01/09/2019 Z36.9 Encounter for screening, Laboratory unspecified 12/26/2018 Z36.9 Encounter for screening, Godwin Reyes M.D. unspecified 12/26/2018 Z36.9 Encounter for screening, Laboratory unspecified 12/26/2018 Z23 Encounter for immunization Maryjo Westbrook MD 12/05/2018 O09.522 Supervision of elderly multigravida, second Orquidea Stroud MD trimester 11/07/2018 Z36.3 Encounter for screening for Miracle Gomez MD malformations 11/07/2018 O09.522 Supervision of elderly multigravida, second Miracle Gomez MD trimester 11/07/2018 Z36.3 Encounter for screening for Ultrasounds malformations 10/11/2018 O09.522 Supervision of elderly filipegravida, second Orquidea Stroud MD trimester 10/11/2018 Z36.9 Encounter for screening, Maryjo Westbrook MD unspecified 10/11/2018 Z36.9 Encounter for screening, Laboratory unspecified 09/20/2018 O09.522 Supervision of elderly multigravida, second Miracle Gomez MD trimester 09/20/2018 O34.211 Matern care for low transverse scar from Miracle Gomez MD prev del Plan of Treatment Future Appointment(s):03/14/2019 7:45 am - Toro Rosas CNM at [facility] O R02019 10:00 am - Maryjo Westbrook MD at [facility] [id number]/21/2019 10:45 am - Janny Braxton CNM at [facility]03/14/2019 7:45 am - Maryjo Westbrook MD at [facility] O R1 - Maryjo Westbrook MDZ34.83 Encounter for supervision of other normal , third trimesterComments:Routine ob well care completed. Reviewed with pt risks benefits of repeat section and bilateral tubal ligation. Pt accepts risk associated with section and bilateral tubal ligation toinclude but not limited to infection, bleeding, damage to internal organs, failure of tubal ligationwith risk of ectopic . Personally reviewed consent form with patient and signed together.Follow up:1 YEAR Functional Status Description No Information Available Mental Status Description No Information Available Referrals Description No Information Available
--- OUTSIDE RECORDS SUMMARY | 2019-03-14 06:13 | XMS REPORT | Continuity of Care Document ---
:1980 External Reference #:[id number] Author Name Orquidea Stroud MD Address [address] [place] [address] Care Team Providers Name Role Phone Brandy James MD Care Team Information Oracle Applications Developer [phone] Problems Description No Information Available Social History Type Date Description Comments Sex Unknown Tobacco Use Start: Unknown Never Smoked Cigarettes ETOH Use Alcohol Use Prior To 3-4 beers/week, stopped with Tobacco Use Start: Unknown Patient has never smoked Recreational Drug Use Does Not Use Drugs Smoking Status Reviewed: 04/17/18 Patient has never smoked Seat Belt/Car Seat [...] CPT Code Status Date Vaccine Lot # [id number] Given 01/11/2019 Tetnus, Diptheria Toxoids And Acellular Pertussis, [id number] PT > 7Yrs Old 14174 Given 12/26/2018 Influenza Vaccine Quadrivalent Preser/Antibiotic [id number] Free Im Use 21138 Given 08/03/2016 Tetnus, Diptheria Toxoids And Acellular Pertussis, [id number] PT > 7Yrs Old Vital Signs Date Vital Result Comment 08/22/2018 9:55am BP Systolic 106 mmHg BP Diastolic 64 mmHg Height 63 inches 5'3" Weight 150.00 lb BMI (Body Mass Index) 26.6 kg/m2 Last Menstrual Period [id number] 3 Parity 1 04/17/2018 9:30am BP Systolic 110 mmHg BP Diastolic 66 mmHg Height 63 inches 5'3" Weight 144.00 lb BMI (Body Mass Index) 25.5 kg/m2 2 Parity 1 Results Test Acquired Facility Test Result H/L Range Note Date Laboratory test 02/19/2019 [facility] Genital For GRP <pending> [place] [address] B Strep Only [phone] Glucose 01/09/2019 [facility] GTT 3HR (SEE NOTE) 1 Tolerance 3HR [place] [address] Gestational Gestational [phone] Laboratory test 12/26/2018 [facility] Glucose 1 HR 145 mg/dL Normal 70-160 2 [place] [address] Post Prandial [phone] CBC With No 12/26/2018 [facility] White Blood 7.3 Normal 3.5- 10.8 [place] [address] Count 10^3/uL [phone] Red Blood Count 3.44 10^6/uL Low 3.70-4.87 [...] Serum Afp 10/11/2018 [facility] Interpretation SEE NOTE 3 Risk For NTD (Osb) LESS THAN 1:5000 4 Afp,Serum 34.0 NG/ML Adjusted Mom 0.91 5 Comment SEE NOTE 6 Date Of 1980 SUSANNE 03/21/2019 SUSANNE Determined By LMP Gestational Age 17.0 WEEKS Weight 150 LBS Race =W Insulin Dependent Diabetic NO Cigarette Smoker NO Repeat Sample NO Number Of Fetuses 1 History Of NTD NO Date Of Draw 10/11/2018 Operators Teacher SEE NOTE 7 Urine Drug 09/20/2018 [facility] Urine Amphetamine Negative ng/ mL 8 Comp 20 [place] [address] [phone] Urine Barbiturates Negative ng/mL 9 Urine Benzodiazepines Negative ng/mL 10 Urine Cocaine Negative ng/mL 11 Urine Phencyclidine Negative ng/mL Cutoff: 25 Urine Tetrahydrocannabinol Negative ng/mL Cutoff: 50 12 Creatinine, Urine 28.5 mg/dL Specific [place] 1.006 pH 7.6 Oxidants Negative 13 Adulterants Comment Normal Codeine, Ur Not Detected ng/mL Cutoff: 25 14 Tmqhega-3-iqty-glucuronide, Ur Not Detected ng/mL 15 Morphine, Ur Not Detected ng/mL Cutoff: 25 16 Qifrkayt-9-sfgm-glucuronide, U Not Detected ng/mL 17 6-monoacetylmorphine, Ur Not Detected ng/mL Cutoff: 25 18 Hydrocodone, Ur Not Detected ng/mL Cutoff: 25 19 Norhydrocodone, Ur Not Detected ng/mL Cutoff: 25 20 Dihydrocodeine, Ur Not Detected ng/mL Cutoff: 25 21 Hydromorphone, Ur Not Detected ng/mL Cutoff: 25 22 Zetinowhmfrjo1gaeezcntukhueln Not Detected ng/mL 23 Oxycodone, Ur Not Detected ng/mL Cutoff: 25 24 Noroxycodone, Ur Not Detected ng/mL Cutoff: 25 25 Oxymorphone, Ur Not Detected ng/mL Cutoff: 25 26 Pvobfegqxtz-3-rwnw-glucuronide Not Detected ng/mL 27 Noroxymorphone, Ur Not Detected ng/mL Cutoff: 25 28 Fentanyl, Ur Not Detected ng/mL Cutoff: 2 29 Norfentanyl, Ur Not Detected ng/mL Cutoff: 2 30 Meperidine, Ur Not Detected ng/mL Cutoff: 25 31 Normeperidine, Ur Not Detected ng/mL Cutoff: 25 32 Naloxone, Ur Not Detected ng/mL Cutoff: 25 33 Jrqjijpb-1-tnto-glucuronide, U Not Detected ng/mL 34 Methadone, Ur Not Detected ng/mL Cutoff: 25 35 Eddp, Ur Not Detected ng/mL Cutoff: 25 36 Propoxyphene, Ur Not Detected ng/mL Cutoff: 25 37 Norpropoxyphene, Ur Not Detected ng/mL Cutoff: 25 38 Tramadol, Ur Not Detected ng/mL Cutoff: 25 39 O-desmethyltramadol, Ur Not Detected ng/mL Cutoff: 25 40 Tapentadol, Ur Not Detected ng/mL Cutoff: 25 41 N-desmethyltapentadol, Ur Not Detected ng/mL Cutoff: 50 42 Cyhtjniqdp-vurq-iflqzfeykoe, U Not Detected ng/mL 43 Buprenorphine, Ur Not Detected ng/mL Cutoff: 5 44 Norbuprenorphine, Ur Not Detected ng/mL Cutoff: 5 45 Norbuprenorphine glucuronide Not Detected ng/mL Cutoff: 20 46 Opioid Interpretation See Comment 47 Panorama Test 08/25/2018 Louise Report Summary See Notes Normal 48 Report Note See Notes Normal Trisomy 13 Age-Based Risk Fraction 1/401 Normal Trisomy 13 Risk Score Text <1/10,000 (<0.01 <SEE NOTE> Normal 49 Trisomy 13 Risk Score Fraction <1/63572 Normal Trisomy 13 Result Text Low Risk Normal Trisomy 13 Result Comments See Notes Normal Trisomy 18 Age-Based Risk Fraction 1/126 Normal Trisomy 18 Risk Score Text <1/10,000 (<0.01 <SEE NOTE> Normal 50 Trisomy 18 Risk Score Fraction <1/03259 Normal Trisomy 18 Result Text Low Risk Normal Trisomy 18 Result Comments See Notes Normal Trisomy 21 Age-Based Risk Fraction 1/62 Normal Trisomy 21 Risk Score Text <1/10,000 (<0.01 <SEE NOTE> Normal 51 Trisomy 21 Risk Score Fraction <1/14320 Normal Trisomy 21 Result Text Low Risk Normal Trisomy 21 Result Comments See Notes Normal Monosomy X Age-Based Risk Fraction 1/255 Normal Monosomy X Risk Score <0.01 % Normal Monosomy X Risk Score Text <1/10,000 (<0.01 <SEE NOTE> Normal 52 Monosomy X Risk Score Fraction <1/60208 Normal Monosomy X Result Text Low Risk Normal Monosomy X Result Comments See Notes Normal Triploidy Result Text Low Risk Normal Triploidy Result Comments See Notes Normal Gender of Fetus Female Fraction (in %) 15.9 % Fraction 15.9% Footnotes See Notes 53 Boiler Plate Text See Notes 54 References See Notes 55 Approvals See Notes 56 Contacts See Notes 57 Horizon Sma 08/25/2018 [facility] Spinal Muscular Atrophy Negative Normal 58 Panel Notes See Notes Is this patient ? Yes Did this patient sign the Patient Acknowledgement? Yes Did the ordering clinician sign the Statement of Informed Consent? Yes Zip code of the ordering facility [facility] Is the patient currently using hormonal medications? No Patient Ethnicity Report Note See Notes Footnotes See Notes References See Notes 59 Approvals See Notes 60 Contacts See Notes 61 Laboratory test 08/25/2018 [facility] TSH 0.90 mcIU/mL Normal 0.34-5.60 [address] [place] [address] [phone] T4 Free 0.66 ng/dL Normal 0.61-1.12 63 HIV 4TH 08/25/2018 [facility] HIV 4th [place] [address] Generation [phone] Lead 08/25/2018 [facility] Lead,Venous, B < 1.0 g/dL 0.0- 4.9 64 [place] [address] [phone] Venous/Capillary Venous Submitting Laboratory Phone [phone] 65 Type And Screen 08/25/2018 [facility] [place] [address] Type [phone] Antibody Screen NEGATIVE CBC With No 08/25/2018 [facility] White Blood 7.7 10^3/uL Normal 3.5-10.8 [place] [address] Count [phone] Red Blood Count 3.78 10^6/uL Normal 3.70-4.87 Hemoglobin 12.2 g/dL Normal 12.0-16.0 Hematocrit 36 % Normal 35-47 Mean Corpuscular Volume 94 fL Normal 80-97 Mean Corpuscular Hemoglobin 32 pg High 27-31 Mean Corpuscular HGB Conc 34 g/dL Normal 31-36 Red Cell Distribution Width 14 % Normal 10-15 Platelet Count 260 10^3/uL Normal 150-450 Mean Platelet Volume 8.0 fL Normal 7.4-10.4 PNL No 08/25/2018 [facility] Rubella Screen Immune Immune 66 [place] [address] [phone] Hemoglobin A1c 4.8 % Normal 4.0-5.6 67 Hepatitis B Surface Ag Negative Negative 68 Syphillis Igg W/Reflex RPR Negative Negative 69 GC/Chlamydia Dna 08/22/2018 [facility] Chlamydia [place] [address] trachomatis Rna [phone] Neisseria gonorrhoeae (GC) Rna Negative Negative Urine Culture And 08/22/2018 [facility] Urine Culture SEE RESULT 70 [place] [address] BELOW [phone] 1 GLU Fast 93 Col: 01/09/19 1313 GLU 1HR 141 Col: 01/09/19 1413 GLU 2HR 102 Col: 01/09/19 1513 GLU 3HR 90 Col: 01/09/19 1613 GLU Interp Col: 01/09/19 1313 GTT normal ranges for obstetrics per the [employer] (ACOG).Based on 100 gm glucose load: Fasting <95 mg/dl 1hr <180 mg/dl 2hr <155 mg/dl 3hr <140 mg/dl 2 [id number] SCREEN NEGATIVE FOR OPEN NTD. 4 LESS THAN 1:5000 5 ADJUSTED AFP MOM INTERPRETIVE CUTOFFS: <2.50 ADJUSTED MOM <1.90 ADJUSTED MOM FOR INSULIN-DEPENDENT DIABETES <4.00 ADJUSTED MOM FOR TWINS <3.50 ADJUSTED MOM FOR TWINS INSULIN-DEPENDENT DIABETES <4.50 ADJUSTED MOM FOR TRIPLETS <4.00 ADJUSTED MOM FOR TRIPLETS INSULIN-DEPENDENT DIABETES 6 THE AFP TEST RESULT INDICATES THAT THIS [...] HAVING A CHILD WITH DOWN SYNDROME, CURRENT [place] [employer] OF OBSTETR[employer] AND GYNECOLOG[employer] GUIDELINES (CARE TRAINER 2007 V109 [phone] RECOMMEND THAT "MATERNAL AGE ALONE NO LONGER [...] ASSISTANCE WITH RECALCULATIONS, PLEASE CALL YOUR LOCAL [facility] AT . FOR ASSISTANCE WITH INTERPRETATION OF THESE RESULTS, PLEASE CALL [phone]. [phone] --- Reviewed by: Cristofer Alvarez MD 8 REFERENCE VALUE Cutoff: 500 9 REFERENCE VALUE Cutoff: 200 10 REFERENCE VALUE Cutoff: 100 11 REFERENCE VALUE Cutoff: 150 12 ADDITIONAL INFORMATION This report is intended for use in clinical monitoring or management of patients. It is not intended for use in employment-related testing. Test Performed by: [facility] [address], [place] [address] 13 REFERENCE VALUE Cutoff: 200 mg/L 14 Tylenol 3 15 Metabolite of codeine REFERENCE VALUE Cutoff: 100 16 Khadijah Dominguez, Contin; Also a minor metabolite (10%) of codeine and can be seen in low concentrations (<2,000 ng/mL) with poppy seed ingestion. 17 Metabolite of morphine REFERENCE VALUE Cutoff: 100 18 Metabolite of heroin 19 Lortab, [place], Vicodin; Also a very minor metabolite of codeine and impurity (<1%) of oxycodone. 20 Metabolite of hydrocodone 21 Metabolite of hydrocodone 22 Dilaudid, Exalgo; Also a metabolite of hydrocodone and a minor (<5%) metabolite of morphine. 23 Metabolite of hydromorphone REFERENCE VALUE Cutoff: 100 24 Endocet, Percocet, Oxycontin 25 Metabolite of oxycodone 26 Numorphan, Opana; Also a metabolite of oxycodone. 27 Metabolite of oxymorphone REFERENCE VALUE Cutoff: 100 28 Metabolite of oxymorphone 29 Actiq, Duragesic, Fentora 30 Metabolite of fentanyl 31 Demerol 32 Metabolite of meperidine 33 Narcan 34 Metabolite of naloxone REFERENCE VALUE Cutoff: 100 35 Dolophine 36 Metabolite of methadone 37 Darvon, Darvocet 38 Metabolite of propoxyphene 39 Tradol, Ultram, Ultracet 40 Metabolite of tramadol 41 Nucynta 42 Metabolite of tapentadol 43 Metabolite of tapentadol REFERENCE VALUE Cutoff: 100 44 Buprenex, Suboxone 45 Metabolite of buprenorphine 46 Metabolite of buprenorphine 47 No opioids were detected. The absence of expected drug(s) and/or drug metabolite(s) may indicate non-compliance, altered pharmacokinetics, inappropriate timing of specimen collection relative to drug administration, diluted/adulterated urine, or limitations of testing. ADDITIONAL INFORMATION This test was developed and its performance characteristics determined by [facility] in a manner consistent with CLIA requirements. This test has not been cleared or approved by the U.S. Food and Drug Administration. 48 LOW RISK 49 <1/10,000 (<0.01%) 50 <1/10,000 (<0.01%) 51 <1/10,000 (<0.01%) 52 <1/10,000 (<0.01%) 53 Condition tested excludes cases with evidence of and/or placental mosaicism. Prior risk for aneuploidy is based on maternal age and gestational age, where applicable. Panorama risk score is based on a priori risk and results of analysis of circulating placental DNA. Prior risk for microdeletion syndromes, if ordered, are based on overall disease prevalence in the population. This test will not i dentify all deletions associated with each disorder. This test has been validated on full region deletions only and may be unable to detect smaller deletions. 54 Testing Methodology DNA isolated from the maternal blood, which contains placental DNA, is amplified at specific loci using a targeted PCR assay and is sequenced using a high-throughput sequencer. fraction is determi ruthann using a proprietary algorithm incorporating data from single nucleotide polymorphism-based (SNP-based) next-generation sequencing [Perdarling E et al. Obstet Gynecol. 2014 Oct;124(2 Pt 1):210-8]. If the estimated fraction is ???2.8%, sequencing data is analyzed using a proprietary SNP-based algorithm to determine the copy number for chromosomes 13, 18, 21, X and Y [Chidi Zambrano et al. Am J Ob stet Gynecol. 2014 Jan;211(5):527.e1-527.e17]. If ordered, specific microdeletions will be evaluated using similar methodology [Shikha ALEGRIA et al. Am J Obstet Gynecol. 2015 May;212(3):332.e1-9]. If a samp le fails to meet the quality threshold, or the fraction is insufficient , an additional algorithm is utilized to determine whether there is an increased risk for triploidy, trisomy 18 and trisomy 1 3 [Yaw et al. The Human Genetics Conference. [facility]. July 31-2016]. However, ???some samples will not produce a result due to failure to meet the necessary quality thresholds. Disclaimers This test has been validated on women with a ovalle, twin or egg donor of at least nine weeks gestation. A result will not be available for higher order multiples and multiple gestation pre gnancies with an egg donor or surrogate, or bone marrow transplant recipients. Complete test panel is not available for twin gestations and pregnancies achieved with an egg donor or surrogate. For twin pregnancies with a fraction value below the threshold for analysis, a sum of the fractions for both twins will be reported. Findings of unknown significance will not be reported. As this ass ay is a screening test and not diagnostic, false positives and false negatives can occur. High risk test results need diagnostic confirmation by alternative testing methods. Low risk results do not full y exclude the diagnosis of any of the syndromes nor do they exclude the possibility of other chromosomal abnormalities or defects, which are not a part of this test. Potential sources of inaccurat e results include, but are not limited to, mosaicism, low fraction, limitations of current diagnostic techniques, or misidentification of samples. This test will not identify all deletions associa zonia with each microdeletion syndrome. This test has been validated on full region deletions only and may be unable to detect smaller deletions. Microdeletion risk score is dependent upon fraction, as deletions on the maternally inherited copy are difficult to identify at lower fractions. Test results should always be interpreted by a clinician in the context of clinical and familial data w ith the availability of genetic counseling when appropriate. The Panorama test was developed by [facility] a laboratory certified under the Clinical Laboratory Improvement Amendments (CLIA). This test has not been cleared or approved by the U.S, Food and Drug Administration (FDA). 55 Please refer to the attached PDF report 56 Aissatou Gage, Ph.D., [facility], Senior Operators Teacher 57 IF THE ORDERING PROVIDER HAS QUESTIONS OR WISHES TO DISCUSS THE RESULTS, PLEASE CONTACT US AT [phone] #3. Ask for the [facility] genetic counselor gem stone cutter. 58 NEGATIVE Spinal Muscular Atrophy (SMA) Results SMN1: >/= 3 copies; g.16479I>G: absent; the g.74212F>G variant does not modify carrier risk in individuals who carry 3 or more copies of SMN1. 59 Please refer to the attached PDF report 60 Aissatou Gage, Ph.D., [facility], Senior Operators Teacher [address] [place] [address] - [email or web address] - Fax [phone] [id number] [phone] [id number] 64 ADDITIONAL INFORMATION Testing performed by Inductively Coupled Plasma-Mass Spectrometry (ICP-MS). This test was developed and its performance characteristics determined by [facility] in a manner consistent with CLIA requirements. This test has not been cleared or approved by the U.S. Food and Drug Administration. 65 Test Performed by: [facility] - [address] [address] 66 [id number] 67 Therapeutic target for the treatment of diabetes mellitus patients is <7% HBA1C, and in selective patients <6.0%. Please refer to [employer] diabetic care guidelines for further information. 68 [id number] 70 SEE RESULT BELOW Name: ANDRAFREDY : [address]: Jillian Wang [facility] Acct: [id number] Unit: [id number] AGE: 37 Location: [facility] Re08/22/18 SEX: F Status: REG REF SPEC: [id number] FELIPE: 08/22/18-[address]: Jillian Wang [facility] REQ: [id number] RECD: 08/22/18 STATUS: COMP _ SOURCE: URINE SPDES: ORDERED: Urine Culture COMMENTS: [id number] Urine Source: Random Procedure Result Reported Site Urine Culture Final 08/23/18- 1610 ML No Growth (<1,000 CFU/mL) * ML - Main Lab . END OF REPORT DEPARTMENT OF PATHOLOGY, [address] [place] [id number] Cesar Leyva M.D. Director [facility] # [id number] Procedures Date Code Description Status 11/07/2018 97985 Echography Uterus Complete Completed 08/22/2018 55704 OB Ultrasound First Trimester Completed Medical Devices Description No Information Available Encounters Type Date Location Provider Dx Diagnosis Office Visit 02/19/2019 East Office Orquidea Stroud, O09.523 Supervision of 1:00p MD jon herzog, third trimester N76.0 Acute vaginitis Assessments Date Code Description Provider 02/19/2019 O09.523 Supervision of sunitha cantrell Lisa, MD trimester 02/19/2019 N76.0 Acute vaginitis Orquidea Stroud MD 02/08/2019 Z36.9 Encounter for screening, Maryjo Westbrook MD unspecified 01/25/2019 O34.211 Maternal care for low transverse scar from Kenny Medina JR, DO previous delivery 01/11/2019 Z23 Encounter for immunization Miracle Gomez MD 01/11/2019 O34.211 Maternal care for low transverse scar from Miracle Gomez MD previous delivery 01/11/2019 O09.523 Supervision of sunitha cantrell MD trimester 01/09/2019 Z36.9 Encounter for screening, Miracle Gomez MD unspecified 01/09/2019 Z36.9 Encounter for screening, Laboratory unspecified 12/26/2018 Z36.9 Encounter for screening, Godwin Reyes M.D. unspecified 12/26/2018 Z36.9 Encounter for screening, Laboratory unspecified 12/26/2018 Z23 Encounter for immunization Maryjo Westbrook MD 12/05/2018 O09.522 Supervision of jon herzog second Orquidea Stroud MD trimester 11/07/2018 Z36.3 Encounter for screening for Miracle Gomez MD malformations 11/07/2018 O09.522 Supervision of tiffanie cantrell MD trimester 11/07/2018 Z36.3 Encounter for screening for Ultrasounds malformations 10/11/2018 O09.522 Supervision of elderly multigravida, second Orquidea Stroud MD trimester 10/11/2018 Z36.9 Encounter for screening, Maryjo Westbrook MD unspecified 10/11/2018 Z36.9 Encounter for screening, Laboratory unspecified 09/20/2018 O09.522 Supervision of elderly multigravida, second Miracle Gomez MD trimester 09/20/2018 O34.211 Matern care for low transverse scar from Miracle Gomez MD prev del 08/25/2018 Z36.9 Encounter for screening, Orquidea Stroud MD unspecified 08/25/2018 Z36.9 Encounter for screening, Laboratory unspecified 08/22/2018 O26.91 related conditions, unspecified, Orquidea Stroud MD first trimester 08/22/2018 O09.521 Supervision of elderly multigravida, first Nevin Wang CNM trimester 08/22/2018 O26.91 related conditions, unspecified, Ultrasounds first trimester Plan of Treatment Future Appointment(s):03/14/2019 7:45 am - Toro Rosas CNM at [facility] O R02019 10:00 am - Maryjo Westbrook MD at [facility]03/21/2019 10:45 am - Janny Braxton CNM at [facility]03/14/2019 7:45 am - Maryjo Westbrook MD at [facility] O R1 10:00 am - Maryjo Westbrook MD at [facility] Yrruyk2802/27/2019 9: 20 am - Godwin Reyes M.D. at [facility]02/19/2019 - Orquidea Stroud MDO09.523 Supervision of elderly multigravida, third gtnbsuzqwH82.0 Acute vaginitisNew Medication:Diflucan 150 mg - take 1 pill as directedComments:Will treat with diflucan and send affirm Functional Status Description No Information Available Mental Status Description No Information Available Referrals Description No Information Available
[2019-03-14] MEDS: Clindamycin 900 MG/D5W BAG(*) 900 MG/50 ML BAG IVPB ONE ×2 (07:05→07:14)
[2019-03-14] MEDS: Gentamicin ADULT (*) 300 MG in NS 0.9% 100 ML* 100 ML IVPB ONE ×2 (07:12→07:14)
[2019-03-14] MEDS ORDERED: ceFOXitin 2 GM IVPREMIX* 2 G/50 ML BAG IVPB ONE (07:18)
[2019-03-14] MEDS ORDERED: OXYTOCIN* 10 UNITS/ML 1 ML VIAL ONE ×2 (07:22→08:16)
[2019-03-14] MEDS ORDERED: Morphine PF AMP (0.5MG/ML)* 5 MG/10 ML AMP ONE (07:22)
[2019-03-14] MEDS ORDERED: Phenylephrine 40 MCG/ML SYRINGE ONE (07:22)
[2019-03-14] MEDS ORDERED: Ondansetron INJ* 2 MG/ML VIAL ONE (07:22)
[2019-03-14] MEDS ORDERED: Dexamethasone IV* 4 MG/ML 1 ML (4 MG) ONE (07:22)
[2019-03-14] MEDS ORDERED: EPHEDrine (Pressors)* 50 MG/ML VIAL ONE (08:16)
[2019-03-14] MEDS ORDERED: Ondansetron INJ* 2 MG/ML VIAL IV PRN (08:31)
[2019-03-14] MEDS ORDERED: Scopolamine 1.5 mg* PATCH TRANSDERM PRN (08:31)
[2019-03-14] MEDS ORDERED: oxyCODONE/Acetamin 5/325 MG* TAB PO PRN ×2 (08:31)
[2019-03-14] MEDS ORDERED: DiMENhydriNATE IV* 50 MG/ML VIAL IV PUSH PRN (08:31)
[2019-03-14] MEDS ORDERED: fentaNYL* 50 MCG/ML 2 ML VIAL (100 MCG VIAL) IV PRN (08:31)
[2019-03-14] MEDS ORDERED: Nalbuphine* 10 MG/ML 1 ML VIAL IV PRN (08:31)
[2019-03-14] MEDS ORDERED: Naloxone* 0.4 MG/ML 1 ML VIAL IV PRN ×2 (08:31→12:30)
[2019-03-14] MEDS ORDERED: Bupivacaine 0.25% SDV PF* 10 ML VIAL INJ ONE (08:42)
[2019-03-14] MEDS ORDERED: Ibuprofen TAB* 600 MG PO SCH (09:00)
[2019-03-14] MEDS ORDERED: Glycerin ADULT SUPP PR PRN (09:37)
[2019-03-14] MEDS ORDERED: Witch Hazel PAD* JAR TOPICAL PRN (09:37)
[2019-03-14] MEDS ORDERED: Dibucaine 1% 28.35 GM TUBE PR PRN (09:37)
[2019-03-14] MEDS ORDERED: Oxytocin in LR* 20 UNITS/1,000 ML BAG IVPB SCH (10:00)
[2019-03-14] MEDS ORDERED: Lactated Ringers 1000 ML Bag* 1,000 ML IV SCH (10:00)
[2019-03-14] MEDS ORDERED: Ketorolac INJ* 30 MG/ML 1 ML VIAL IV SCH (12:00)
[2019-03-14] MEDS: Ibuprofen TAB* 600 MG PO SCH ×3 (12:47→20:40)
[2019-03-14] MEDS: Docusate CAP* 100 MG PO SCH ×2 (12:47→20:41)
[2019-03-14] MEDS: Simethicone TAB* 80 MG TAB.CHEW PO SCH ×3 (12:47→20:41)
[2019-03-14 17:08] LABS: Urine Benzodiazepine Screen None Detected (None Detect); Urine Opiates Screen None Detected (None Detect)
--- NOTE | 2019-03-14 19:31 | OP ---
DATE OF OPERATION: 03/14/19 - ROOM #116 DATE OF : 76 SURGEON: Maryjo Westbrook MD. ACCOUNTING SYSTEMS MANAGER: Toro Rosas CNM. ANESTHESIOLOGIST: Dr. Nur. ANESTHESIA: Spinal with local. PRE-OP DIAGNOSES: Intrauterine at 39-1/7 weeks, desires repeat section, desires permanent sterility. POST-OP DIAGNOSES: Intrauterine at 39-1/7 weeks, desires repeat section, desires permanent sterility, delivered. OPERATIVE PROCEDURE: Repeat low-transverse section with assisted vacuum delivery of head and bilateral tubal ligation. ESTIMATED BLOOD LOSS: 600 cc. URINE OUTPUT: 50 cc of clear yellow urine. FLUIDS: 2400 cc of crystalloid. FINDINGS: Revealed a vertex female with Apgars 9 at 1 minute and 9 at 5 minutes, weight 9 pounds 4 ounces, nuchal cord x1, no meconium, clear fluid. Placenta manually extracted, 3-vessel cord intact. Normal-appearing tubes and ovaries bilaterally. No adhesive disease. COMPLICATIONS: None apparent. DISPOSITION: Stable to recovery room. DESCRIPTION OF PROCEDURE: The patient was placed in the dorsal lithotomy position. Abdomen was prepped and draped in sterile standard fashion. The patient was identified with the universal protocol. An incision was made through prior incision. This was carried down through to the fascia. Fascia was scored in the midline and extended laterally and superiorly using Dahl scissors. Fascia was superiorly and inferiorly with blunt and sharp dissection. The peritoneum was entered sharply with Metzenbaum scissors and the peritoneal incision was extended bluntly. The peritoneum was noted to have no adhesive disease as well as the lower uterine segment was clean of any adhesions and had a full-thickness lower uterine segment. This was tented up with an Allis. An incision was made with a scalpel. This was carried down to the membranes. The incision was extended laterally and superiorly using bandage scissors. Amniotomy was created for clear fluid. The 's head was delivered with the assist of vacuum x1 pull, anterior and posterior shoulder delivered. Nuchal cord reduced. Cord was allowed to pulse for greater than a minute. Cord was then clamped and then cut, and the was handed off to waiting optical brightener maker helper. Appropriate cord blood was obtained. Placenta was then manually extracted, noted to be 3-vessel cord, intact. Uterus was exteriorized. Cavity was wiped clean, noted to be free of any membranes or placental tissue. Incision itself was reapproximated in two layers , first layer running locked, second layer running imbricated. Hemostasis was assured. Attention was then focused on the tubal ligation. The patient reaffirmed her desire for permanent sterility. A Kristin was placed across the mesosalpinx. The distal fimbria was incorporated using a LigaSure 2-0 Vicryl and then a free tie. The mesosalpinx was clamped off. The distal end of the tube including fimbria was then excised. After good hemostasis, specimen was excised using Metzenbaum scissors. The pedicle was identified and noted to be hemostatic. This approach was first performed on the left and repeated on the right for complete hemostasis again using 2-0 Vicryl, first a free tie and then a LigaSure suture. Hemostasis was noted in the lower uterine segment. The uterus was returned intraabdominally. Colic gutters were lavaged. Hemostasis was assured at the tubal ligation sites bilaterally and at the hysterotomy site. The peritoneum was then clamped and the peritoneum was reapproximated using 3-0 Vicryl in a running fashion. The prefascial area was visualized. 0.25% Marcaine 10 cc was injected into the junction along the muscle and fascia and the fascia itself was then reapproximated using 0 Vicryl x2 in a running fashion. The subcu was lavaged, hemostasis assured with Bovie coagulation on all layers. Hemostasis was assured. After closure of the Camper fascia with 3- 0 Vicryl in interrupted fashion, the skin was then reapproximated in a subcuticular fashion using 4-0 Monocryl. Mastisol and Steris were applied. All sponge, instrument, and blade counts were correct throughout the case. The patient tolerated the procedure well and went to recovery room in stable condition. [id number]/[facility] #: [id number] KLAUS
[2019-03-15] MEDS ORDERED: Acetaminophen TAB* 325 MG PO PRN
[2019-03-15] MEDS ORDERED: oxyCODONE/Acetamin 5/325 MG* TAB PO PRN
[2019-03-15 06:50] LABS: ABS Basophils 0.1 10^3/ul (0-0.2); ABS Eosinophils 0.1 10^3/ul (0-0.6); ABS Monocytes 0.9 10^3/ul (0-0.8); ABS Neutrophils 7.1 10^3/ul (1.5-7.7); Eosinophil % 1.1 %; Hematocrit 26 % (35-47); Hemoglobin 9.1 g/dL (12.0-16.0); Lymphocyte % 19.6 %; Mean Corpuscular HGB Conc 35 g/dL (31-36); Mean Corpuscular Hemoglobin 30 pg (27-31); Mean Corpuscular Volume 86 fL (80-97); Mean Platelet Volume 7.6 fL (7.4-10.4); Platelet Count 255 10^3/uL (150-450); Red Blood Count 3.04 10^6 /uL (3.70-4.87); Red Cell Distribution Width 13 % (10-15); White Blood Count 10.2 10^3/uL (3.5-10.8)
[2019-03-15] MEDS: Docusate CAP* 100 MG PO SCH ×3 (07:20→20:04)
[2019-03-15] MEDS: Ibuprofen TAB* 600 MG PO SCH ×3 (07:20→22:07)
[2019-03-15] MEDS: Simethicone TAB* 80 MG TAB.CHEW PO SCH ×4 (07:20→20:04)
[2019-03-15] MEDS: Ferrous Gluconate TAB* 324 MG TAB PO SCH ×2 (08:11→20:04)
[2019-03-15] MEDS: oxyCODONE/Acetamin 5/325 MG* TAB PO PRN ×2 (11:48→17:54)
[2019-03-16] MEDS: oxyCODONE/Acetamin 5/325 MG* TAB PO PRN (02:48)
[2019-03-16 08:14] VITALS: BP 114/60
[2019-03-16] MEDS: Ferrous Gluconate TAB* 324 MG TAB PO SCH (08:23)
[2019-03-16] MEDS: Simethicone TAB* 80 MG TAB.CHEW PO SCH (08:23)
[2019-03-16] MEDS: Ibuprofen TAB* 600 MG PO SCH (08:23)
[2019-03-16] MEDS: Docusate CAP* 100 MG PO SCH (08:24)
== END 2019-03-16 11:50 | disposition home or self-care (01) | DRG 785 ==
LOC: MCHOB 06:09
PROVIDERS: ADMIT Obstetrics & Gynecology; ATTEND Obstetrics & Gynecology
PROC: 0UB70ZZ Excision of Bilateral Fallopian Tubes, Open Approach (ICD-10-PCS; 2019-03-14)
PROC: 4A1HXCZ Monitoring of Products of Conception, Cardiac Rate, External Approach (ICD-10-PCS; 2019-03-14)
PROC: 10D00Z1 Extraction of Products of Conception, Low, Open Approach (ICD-10-PCS; principal; 2019-03-14 07:45)
DX: O34.211 Maternal care for low transverse scar from previous cesarean delivery (principal); O69.81X0 Labor and delivery complicated by cord around neck, without compression, not applicable or unspecified; O90.81 Anemia of the puerperium; Z3A.39 39 weeks gestation of pregnancy; Z37.0 Single live birth; Z88.0 Allergy status to penicillin; Z30.2 Encounter for sterilization
CPT/HCPCS: 36415; 80307; 85025; 88302; A9270-GY; J0694; J1100; J1580; J1885; J2405; J2590; J3490